=== PATIENT | male | born 1980 | race Caucasian/White ===

== ENCOUNTER 2017-02-13 14:52 | Emergency (ER) | payer BC ==
[2017-02-13] MEDS ORDERED: PROPARACAINE HCL 0.5% OPHTHALMIC SOL ONE (15:06)
[2017-02-13 15:21] VITALS: RESP 20; TEMP 97.7
[2017-02-13 15:32] VITALS: BP 148/89; PULSE 78; O2SAT 99
[2017-02-13] MEDS ORDERED: PROPARACAINE HCL 0.5% OPHTHALMIC SOL OP ONE (15:34)
== END 2017-02-13 15:30 | disposition home or self-care (01) ==
LOC: ED 14:52
DX: T15.91XA Foreign body on external eye, part unspecified, right eye, initial encounter (principal)
CPT/HCPCS: 99282